=== PATIENT | female | born 1985 ===

== ENCOUNTER 2021-06-29 21:01 | Emergency (ER) | payer MEDICAID ==
--- NOTE | 2021-06-29 21:33 | EDM.PDOC ---
ED HPI GENERAL MEDICAL PROBLEM - General Chief Complaint: General Stated Complaint: allergic reation to a med and needs a med change Time Seen by Provider: 06/29/21 21:19 - History of Present Illness INITIAL COMMENTS - FREE TEXT/NARRATIVE: History of present illness: [] Patient is feeling of discomfort in her chest as well as itching in her perineal area as well as some hives. It all started after she started her last dose her second dose of Levaquin. Levaquin started yesterday for UTI. Urine was sent here and a culture shows E. coli but sensitivities not available. She said her doctor put her on Levaquin because she had a need for steroid inhaler and her asthma felt little worse and he usually put her on an antibiotic for bronchitis. The patient does not have any lightheadedness dizziness. She does have night sweats. Patient wants to know why she has night sweats off and on since she started Macrodantin about 2 weeks ago. She does not want a Covid test at this time. She does not have any systemic signs of toxicity or sepsis. Review of systems: As per history of present illness and below otherwise all systems reviewed and negative. Past medical history: As per history of present illness and as reviewed below otherwise noncontributory. Surgical history: As per history of present illness and as reviewed below otherwise noncontributory. Social history: No reported history of drug or alcohol abuse. Family history: As per history of present illness and as reviewed below otherwise noncontributory. Physical exam: Constitutional - well developed, well-nourished and in no acute distress HEENT - normocephalic, no evidence of trauma - external nose and mouth normal - no mass in neck and no JVD - mucosae moist EYES - full EOM, PERRL, no icterus - no evidence of inflammation, injection, or drainage Respiratory - no respiratory distress, equal bilateral expansion, lungs clear to auscultation and no abnormal lung sounds Cardiovascular - Regular Rhythm with S1 and S2 appreciated and no murmur, gallop or rub. GI - abdomen soft without distension or organomegaly - no guard or rebound Musculoskeletal no gross deformity of long bones or joints - no tenderness, swelling or edema Neurologic - Alert and oriented times four - CN II-XII grossly intact - motor sensory and coordination symmetrically normal Psychiatric - appropriate mood and affect with normal thought content Hematologic - No petechiae or purpura - mucosa appropriate color and sclera not pale - normal nail bed color and refill Integument - no rash or evidence of trauma - normal turgor Diagnostics: [] Therapeutics: [] Impression: [] Plan: [] Definitive disposition and diagnosis as appropriate pending reevaluation and review of above. - Related Data Allergies Allergy/AdvReac Type Severity Reaction Status Date / Time ibuprofen Allergy Chest Verified 06/29/21 21:27 Tightness levothyroxine Allergy Chest Verified 06/29/21 21:27 Tightness nitrofurantoin Allergy Cough Verified 06/29/21 21:27 Home Meds: Home Meds Azithromycin 250 mg PO DAILY #6 tablet 06/29/21 [Rx] Budesonide [Pulmicort] 1 dose PO DAILY 06/29/21 [History] ED ROS GENERAL - Review of Systems Review Of Systems: Comprehensive ROS is negative, except as noted in HPI. ED EXAM, GENERAL - Physical Exam Exam: See Below Free Text/Narrative:: My physical exam is in the HPI Course - Vital Signs Last Recorded V/S: Last Vital Signs Temp 36.3 C 06/29/21 21:28 Pulse 72 06/29/21 21:28 Resp 17 06/29/21 21:28 BP 109/56 L 06/29/21 21:28 Pulse Ox 100 06/29/21 21:28 Departure - Departure Time of Disposition: 21:45 Disposition: Home, Self-Care 01 Condition: Good Clinical Impression: Allergic reaction, UTI (urinary tract infection), Bronchitis, Night sweats - Discharge Information Prescriptions: Azithromycin 250 mg PO DAILY #6 tablet Instructions: Allergies, Adult, [id number], Urinary Tract Infection, Adult, Acute Bronchitis, Adult Forms: ED Department Discharge Additional Instructions: Drink plenty of fluids. Follow-up on the culture to see what sensitivities are. Return if worse. [facility] - Primary [facility] [address] [place] [id number] [facility] [address] [place] [id number] The following information is given to patients seen in the emergency department who are being discharged to home. This information is to outline your options for follow-up care. We provide all patients seen in our emergency department with a follow-up referral. The need for follow-up, as well as the timing and circumstances, are variable depending upon the specifics of your emergency department visit. If you don't have a primary care physician on staff, we will provide you with a referral. We always advise you to contact your personal physician following an emergency department visit to inform them of the circumstance of the visit and for follow-up with them and/or the need for any referrals to a consulting specialist. The emergency department will also refer you to a specialist when appropriate. This referral assures that you have the opportunity for follow-up care with a s pecialist. All of these measure are taken in an effort to provide you with optimal care, which includes your follow-up. Under all circumstances we always encourage you to contact your private physici an who remains a resource for coordinating your care. When calling for follow-up care, please make the office aware that this follow-up is from your recent emergency room visit. If for any reason you are refused follow-up, please contact the [facility] Emergency Department at and asked to speak to the emergency department charge nurse. Sepsis Event Note (ED) - Focused Exam Vital Signs: Vital Signs Temp Pulse Resp BP Pulse Ox 06/29/21 21:28 36.3 C 72 17 109/56 L 100
== END 2021-06-29 21:59 | disposition home or self-care (01) ==
LOC: MW.ED 21:01
DX: R61 Generalized hyperhidrosis (principal); J40 Bronchitis, not specified as acute or chronic; T36.8X5A Adverse effect of other systemic antibiotics, initial encounter; N39.0 Urinary tract infection, site not specified; B96.20 Unspecified Escherichia coli [E. coli] as the cause of diseases classified elsewhere; Z88.1 Allergy status to other antibiotic agents; Z88.6 Allergy status to analgesic agent
CPT/HCPCS: 99283